=== PATIENT | female | born 1950 | race Two or more races ===

== ENCOUNTER 2017-07-29 12:47 | Outpatient (CLI) | payer OTHER | END 2017-07-29 12:53 | disposition home or self-care (01) | LOC: MAMO-SONO 12:47 | DX: Z12.31 Encounter for screening mammogram for malignant neoplasm of breast (principal); Z87.898 Personal history of other specified conditions; N60.11 Diffuse cystic mastopathy of right breast; N60.12 Diffuse cystic mastopathy of left breast; N64.89 Other specified disorders of breast ==

== ENCOUNTER 2018-03-03 13:39 | Outpatient (CLI) | payer OTHER | END 2018-03-03 13:49 | disposition home or self-care (01) | LOC: NUCLEAR 13:39 | DX: M85.89 Other specified disorders of bone density and structure, multiple sites (principal); M81.0 Age-related osteoporosis without current pathological fracture ==

== ENCOUNTER 2018-07-29 13:49 | Outpatient (CLI) | payer OTHER | END 2018-07-29 13:50 | disposition home or self-care (01) | LOC: MAMO-SONO 13:49 | DX: Z12.31 Encounter for screening mammogram for malignant neoplasm of breast (principal); Z87.898 Personal history of other specified conditions; N63.10 Unspecified lump in the right breast, unspecified quadrant; N63.20 Unspecified lump in the left breast, unspecified quadrant; N64.4 Mastodynia; N60.11 Diffuse cystic mastopathy of right breast ==

== ENCOUNTER 2019-05-13 11:33 | Outpatient (CLI) | payer OTHER | END 2019-05-13 11:36 | disposition home or self-care (01) | LOC: SONOGRAMA 11:33 → MAMO-SONO 11:45 | DX: M12.812 Other specific arthropathies, not elsewhere classified, left shoulder (principal) ==

== ENCOUNTER 2019-08-02 13:49 | Outpatient (CLI) | payer OTHER | END 2019-08-02 14:03 | disposition home or self-care (01) | LOC: MAMO-SONO 13:49 | DX: Z12.31 Encounter for screening mammogram for malignant neoplasm of breast (principal); Z87.898 Personal history of other specified conditions; N63.11 Unspecified lump in the right breast, upper outer quadrant ==

== ENCOUNTER → 2020-01-11 | Outpatient (CLI) | payer OTHER | END | disposition home or self-care (01) | LOC: SONOGRAMA 08:26 | PROVIDERS: ATTEND Internal Medicine Cardiovascular Disease | DX: R10.84 Generalized abdominal pain (principal); M12.88 Other specific arthropathies, not elsewhere classified, other specified site ==

== ENCOUNTER 2020-08-02 13:00 | Outpatient (CLI) | payer OTHER | END 2020-08-02 13:21 | disposition home or self-care (01) | LOC: MAMO-SONO 13:00 | PROVIDERS: ATTEND Internal Medicine Cardiovascular Disease | DX: Z12.31 Encounter for screening mammogram for malignant neoplasm of breast (principal); N64.59 Other signs and symptoms in breast ==

== ENCOUNTER 2021-03-30 08:00 | Outpatient (CLI) | payer OTHER | END 2021-03-30 08:30 | disposition home or self-care (01) | LOC: PPH VACUNA 08:00 | PROVIDERS: ATTEND Emergency Medicine Pediatric Emergency Medicine | DX: Z23 Encounter for immunization (principal) ==

== ENCOUNTER 2021-08-02 11:06 | Outpatient (CLI) | payer OTHER | END 2021-08-02 11:18 | disposition home or self-care (01) | LOC: TOM 11:06 | PROVIDERS: ATTEND Internal Medicine Cardiovascular Disease | DX: R10.9 Unspecified abdominal pain (principal); N39.0 Urinary tract infection, site not specified; N80.9 Endometriosis, unspecified ==

== ENCOUNTER 2021-08-06 06:59 | Outpatient (CLI) | payer OTHER | END 2021-08-06 11:52 | disposition home or self-care (01) | LOC: MAMO-SONO 06:59 | PROVIDERS: ATTEND Internal Medicine Cardiovascular Disease | DX: N63.11 Unspecified lump in the right breast, upper outer quadrant (principal) ==

== ENCOUNTER 2022-08-21 13:29 | Outpatient (CLI) | payer OTHER | END 2022-08-21 13:40 | disposition home or self-care (01) | LOC: MAMO-SONO 13:29 | PROVIDERS: ATTEND Internal Medicine Cardiovascular Disease | DX: N63.11 Unspecified lump in the right breast, upper outer quadrant (principal) ==

== ENCOUNTER 2022-09-07 07:43 | Outpatient (CLI) | payer OTHER | END 2022-09-07 07:49 | disposition home or self-care (01) | LOC: LAB 07:43 | DX: D68.8 Other specified coagulation defects (principal); H25.013 Cortical age-related cataract, bilateral; Z98.41 Cataract extraction status, right eye; H25.011 Cortical age-related cataract, right eye ==

== ENCOUNTER 2022-09-09 09:42 | Outpatient (CLI) | payer OTHER | END 2022-09-09 09:44 | disposition home or self-care (01) | LOC: LAB 09:42 → EKG 09:42 → LAB 09:44 | PROVIDERS: ATTEND Ophthalmology | DX: I11.9 Hypertensive heart disease without heart failure (principal) ==

== ENCOUNTER 2022-09-19 08:31 | Outpatient (CLI) | payer OTHER | END 2022-09-19 08:42 | disposition home or self-care (01) | LOC: TOM 08:31 | PROVIDERS: ATTEND Internal Medicine Gastroenterology | DX: C18.2 Malignant neoplasm of ascending colon (principal) ==

== ENCOUNTER 2022-10-23 09:03 | Outpatient (CLI) | payer OTHER | END 2022-10-23 09:13 | disposition home or self-care (01) | LOC: LAB 09:03 | PROVIDERS: ATTEND Surgery | DX: D37.4 Neoplasm of uncertain behavior of colon (principal); D12.0 Benign neoplasm of cecum; R19.4 Change in bowel habit ==

== ENCOUNTER 2022-10-29 11:59 | Outpatient (CLI) | payer OTHER | END 2022-10-29 12:01 | disposition home or self-care (01) | LOC: EKG 11:59 | PROVIDERS: ATTEND Specialist | DX: Z01.810 Encounter for preprocedural cardiovascular examination (principal) ==

== ENCOUNTER 2023-08-18 10:21 | Outpatient (CLI) | payer OTHER | END 2023-08-18 10:25 | disposition home or self-care (01) | LOC: RAD 10:21 | PROVIDERS: ATTEND Internal Medicine Cardiovascular Disease | DX: M17.9 Osteoarthritis of knee, unspecified (principal) ==

== ENCOUNTER 2023-11-25 12:56 | Outpatient (CLI) | payer OTHER | END 2023-11-25 12:58 | disposition home or self-care (01) | LOC: NUCLEAR 12:56 | PROVIDERS: ATTEND Orthopaedic Surgery | DX: M81.0 Age-related osteoporosis without current pathological fracture (principal) ==

== ENCOUNTER 2023-11-27 13:01 | Outpatient (CLI) | payer OTHER | END 2023-11-27 13:04 | disposition home or self-care (01) | LOC: MRI 13:01 | PROVIDERS: ATTEND Orthopaedic Surgery | DX: M25.561 Pain in right knee (principal); M23.91 Unspecified internal derangement of right knee | CPT/HCPCS: 73721 ==

== ENCOUNTER 2024-08-31 08:13 | Outpatient (CLI) | payer OTHER | END 2024-09-01 08:19 | disposition home or self-care (01) | LOC: MAMO-SONO 08:13 | PROVIDERS: ATTEND Internal Medicine Cardiovascular Disease | DX: N60.11 Diffuse cystic mastopathy of right breast (principal); N60.12 Diffuse cystic mastopathy of left breast; Z12.31 Encounter for screening mammogram for malignant neoplasm of breast ==